=== PATIENT | female | born 1960 | race Caucasian/White ===

== ENCOUNTER 2020-12-31 11:24 | Emergency (ER) | payer BC, OTHER ==
--- NOTE | 2020-12-31 13:11 | RAD ---
Exam: XR Hip Lt 2-3 View HISTORY: Fracture left hip. Post surgery. Follow-up evaluation COMPARISON: 02/04/2016 FINDINGS: Postoperative changes left hip are present with an antegrade intramedullary grzegorz with dynamic compress ion screw and distal interlocking screw. No fracture is seen involving the proximal left femur. However, there are fractures involving the left superior and inferior pubic rami which appear more ac anatoly in origin. No dislocation is seen. Vascular calcifications are seen overlying the lower abdomen and pelvis. IMPRESSION: 1. Nondisplaced fractures left superior and inferior pubic rami. 2. Postoperative changes left hip.
[2020-12-31] MEDS ORDERED: Ondansetron ODT 4 MG TAB ONE (13:34)
[2020-12-31] MEDS ORDERED: Morphine 4 MG/ML VIAL ONE (13:34)
[2020-12-31] MEDS ORDERED: Ketorolac Tromethamine 30 MG/ML VIAL ONE (13:34)
== END 2020-12-31 14:01 | disposition home or self-care (01) ==
LOC: ERS 11:24
DX: S32.592A Other specified fracture of left pubis, initial encounter for closed fracture (principal); E03.9 Hypothyroidism, unspecified; F17.210 Nicotine dependence, cigarettes, uncomplicated; Z79.899 Other long term (current) drug therapy; W01.0XXA Fall on same level from slipping, tripping and stumbling without subsequent striking against object, initial encounter
CPT/HCPCS: 96372; J1885; J2270; Q0162

== ENCOUNTER 2021-03-01 14:56 | Inpatient (IN) | payer BC ==
[2021-03-01 15:34] LABS: #Basophils 0.1 thou/uL (0.0-0.2); #Eosinphils 0.3 thou/uL (0.0-0.7); #Lymphocytes 2.9 thou/uL (1.20-3.40); #Neutrophils 7.8 thou/uL (1.40-6.50); %Basophils 0.9 % (0.0-1.0); %Eosinophils 2.8 % (0.0-10.0); %Lymphocytes 23.9 % (21.0-51.0); %Monocytes 7.9 % (0.0-10.0); %Neutrophils 64.5 % (42.0-75.0); Hemoglobin 10.3 g/dL (12.0-16.0); Mean Corpuscular HGB CONC 33.6 g/dL (32.0-36.0); Mean Corpuscular Hemoglobin 34.4 pg (27.0-31.0); Mean Platelet Volume 6.7 fL (7.4-10.4); Platelet Count 526 thou/uL (130-400); RBC Distribution Width 12.2 % (11.5-14.5); Red Blood Cell (RBC) Count 2.98 mill/uL (4.20-5.40); White Blood Cell (WBC) Count 12.1 thou/uL (4.8-10.8)
[2021-03-01 16:01] LABS: ALT (SGPT) 8 U/L (8-55); AST (SGOT) 23 U/L (5-34); Albumin 3.3 g/dL (3.5-5.0); Alkaline Phosphatase 345 U/L (40-110); Anion Gap 16 mmol/L (10-20); BUN (Urea Nitrogen) Less than 4 mg/dL (9.8-20.1); Bilirubin, Total 0.3 mg/dL (0.2-1.2); Calc. Creatinine Clearance 0 mL/min (70-130); Calcium 8.8 mg/dL (7.8-10.44); Carbon Dioxide 21 mmol/L (22-29); Chloride 100 mmol/L (98-107); Globulin 3.5 g/dL (2.4-3.5); Glucose 95 mg/dL (70-105); Potassium 3.3 mmol/L (3.5-5.1); Protein, Total 6.8 g/dL (6.0-8.3); Sodium 134 mmol/L (136-145)
[2021-03-01] MEDS ORDERED: Acetaminophen/Codeine 30-300mg Tablet PO PRN ×2 (17:56)
[2021-03-01] MEDS ORDERED: Communication Order-Pharmacy FS SCH (18:00)
[2021-03-01 18:31] LABS: INR-International Normal Ratio 1.2; PTT 32.4 sec (22.9-36.1); Prothrombin Time 15.7 sec (12.0-14.7)
[2021-03-01] MEDS ORDERED: TETANUS AND DIPHTHERIA TOX/PF 0.5 ML DISP.SYRIN IM SCH (20:00)
[2021-03-01] MEDS: CEFAZOLIN 2 GM in Premix Bag 1 BAG IVPB SCH (21:03)
[2021-03-02] MEDS: CEFAZOLIN 2 GM in Premix Bag 1 BAG IVPB SCH ×3 (05:08→21:01)
[2021-03-02 11:21] VITALS: BMI 14.7
[2021-03-02 11:58] LABS: SARS-CoV-2 NAA Rapid Test Not Detected (NotDetected)
[2021-03-02] MEDS ORDERED: Fentanyl 100 MCG/2 ML VIAL ONE (15:04)
[2021-03-02] MEDS ORDERED: Lidocaine 1% PF 5 ML VIAL ONE (15:12)
[2021-03-02] MEDS ORDERED: PROPOFOL 200 MG/20 ML VIAL ONE (15:12)
[2021-03-02] MEDS ORDERED: Ondansetron PF 4 MG/2 ML Vial ONE (15:12)
[2021-03-02] MEDS ORDERED: Dexamethasone 20 MG/5 ML VIAL ONE (15:12)
[2021-03-02] MEDS ORDERED: Ondansetron HCl/PF 4 MG/2 ML Vial IVP PRN (16:41)
[2021-03-02] MEDS ORDERED: Promethazine HCl 25 MG/ML VIAL IM PRN (16:41)
[2021-03-02] MEDS ORDERED: Promethazine HCl 25 MG/ML VIAL SLOW IVP PRN (16:41)
[2021-03-02] MEDS ORDERED: Ketorolac Tromethamine 30 MG/ML VIAL IVP PRN (16:41)
[2021-03-02] MEDS ORDERED: Potassium Chloride 20 MEQ TAB PO SCH (21:00)
[2021-03-02] MEDS ORDERED: Potassium Chloride 20 MEQ in Premix Bag 1 BAG IVPB SCH (22:00)
[2021-03-03] MEDS ORDERED: Electrolyte Replacement Protocol 1 EACH FS PRN (00:15)
[2021-03-03] MEDS: Cholestyramine/Aspartame 4 gm Packet PO SCH ×2 (00:44→13:36)
[2021-03-03] MEDS ORDERED: Potassium Chloride 20 MEQ TAB PO SCH ×3 (01:30→09:00)
[2021-03-03] MEDS ORDERED: Magnesium 2 GM/50 ML 2 GM in Premix Bag 1 BAG IVPB SCH ×2 (01:30→06:30)
[2021-03-03] MEDS ORDERED: Methyl Salicylate/Menthol 85 GM TUBE TOP PRN (03:43)
[2021-03-03] MEDS ORDERED: Melatonin 3 MG TAB PO PRN (03:44)
[2021-03-03 05:21] LABS: #Lymphocytes 1.3 thou/uL (1.20-3.40); #Monocytes 0.2 thou/uL (0.11-0.59); #Neutrophils 8.5 thou/uL (1.40-6.50); %Basophils 0.1 % (0.0-1.0); %Eosinophils 0.1 % (0.0-10.0); %Monocytes 1.8 % (0.0-10.0); Hemoglobin 8.5 g/dL (12.0-16.0); Mean Corpuscular HGB CONC 33.7 g/dL (32.0-36.0); Mean Corpuscular Hemoglobin 34.5 pg (27.0-31.0); Mean Platelet Volume 6.9 fL (7.4-10.4); Platelet Count 408 thou/uL (130-400); Red Blood Cell (RBC) Count 2.45 mill/uL (4.20-5.40)
[2021-03-03 05:40] LABS: Anion Gap 17 mmol/L (10-20); BUN (Urea Nitrogen) Less than 4 mg/dL (9.8-20.1); Calc. Creatinine Clearance 58 mL/min (70-130); Calcium 8.1 mg/dL (7.8-10.44); Carbon Dioxide 18 mmol/L (22-29); Chloride 103 mmol/L (98-107); Glucose 141 mg/dL (70-105); Magnesium 1.8 mg/dL (1.6-2.6); Potassium 3.5 mmol/L (3.5-5.1); Sodium 134 mmol/L (136-145)
[2021-03-03] MEDS: CEFAZOLIN 2 GM in Premix Bag 1 BAG IVPB SCH ×2 (05:48→13:36)
[2021-03-03] MEDS ORDERED: Levothyroxine Sodium 88 MCG TAB PO SCH (06:00)
[2021-03-03] MEDS ORDERED: Calcium Carbonate 500 MG ChewTAB PO PRN (09:14)
[2021-03-03 11:30] VITALS: BP 94/57; TEMP 98.1
== END 2021-03-03 15:30 | disposition home health service (06) | DRG 511 ==
LOC: ERS 14:56 → SURG B 17:45
PROVIDERS: ADMIT Orthopaedic Surgery; ATTEND Orthopaedic Surgery
PROC: 0PBL0ZZ Excision of Left Ulna, Open Approach (ICD-10-PCS; principal; 2021-03-03)
DX: S52.022A Displaced fracture of olecranon process without intraarticular extension of left ulna, initial encounter for closed fracture (principal); E87.1 Hypo-osmolality and hyponatremia; E03.9 Hypothyroidism, unspecified; F17.210 Nicotine dependence, cigarettes, uncomplicated; K52.9 Noninfective gastroenteritis and colitis, unspecified; I95.9 Hypotension, unspecified; W19.XXXA Unspecified fall, initial encounter
CPT/HCPCS: 0240U; 36415; 71045; 80048; 80053; 83735; 84443; 85025; 85610; 85652; 85730; 86140; 87070; 87205; 93005; J0690; J1100; J2405; J2704; J3010; J3475; J3480

== ENCOUNTER 2021-09-30 14:09 | Outpatient (CLI) | payer BC | END 2021-09-30 14:10 | disposition home or self-care (01) | LOC: BICMAMMO 14:09 | PROVIDERS: ATTEND Orthopaedic Surgery | DX: M81.0 Age-related osteoporosis without current pathological fracture (principal); M85.88 Other specified disorders of bone density and structure, other site; Z87.310 Personal history of (healed) osteoporosis fracture | CPT/HCPCS: 77080 ==